=== PATIENT | male | born 1945 | race Caucasian/White ===

== ENCOUNTER 2018-02-07 22:47 | Emergency (ER) | payer MEDICARE ==
[2018-02-07] MEDS ORDERED: SODIUM CHLORIDE 0.9% 1,000 ML IV ONE (23:53)
[2018-02-07] MEDS ORDERED: ACETAMINOPHEN TAB 500 MG TAB PO STA (23:53)
--- NOTE | 2018-02-07 23:56 | ED ---
Recheck HPI - General Source: patient Mode of arrival: wheelchair Limitations: no limitations <Pearl Garcia - Last Filed: 02/08/18 02:45> <Demetrius Oneal - Last Filed: 02/10/18 09:24> - General Chief Complaint: Recheck/Abnormal Lab/Rx Stated Complaint: leg redness, fever Time Seen by Provider: 02/07/18 23:33 - History of Present Illness Initial Comments: 72-year-old male patient presents to the emergency department today for complaints of left knee pain, redness, and swelling. Patient has had infections to the left knee joint twice in the past. Patient sates he feels similar to his previous symptoms. He states that he is also having a fever and chills. He states that the left lower leg is red and swollen. Denies any numbness or tingling to the leg. Denies any recent long car rides or history of DVTs. He denies any cough, congestion, sore throat, nasal congestion, abdominal pain, nausea, vomiting, constipation, or diarrhea. Denies any hematuria, dysuria, urinary frequency, urinary urgency. Patient did have cataract surgery to the left eye today. Denies any eye symptoms at this time. Patient denies any recent rash, shortness breath, chest pain, back pain, numbness, tingling, dizziness, weakness, hematuria, dysuria, urinary urgency, urinary frequency, headache, or any other complaints. (Pearl Garcia) - Related Data Home Medications Medication Instructions Recorded Confirmed Celecoxib [CeleBREX] 200 mg PO DAILY 02/07/18 02/07/18 Diclofenac Sodium/Misoprostol 1 tab PO DAILY 02/07/18 02/07/18 [Arthrotec 50 mg-200 Mcg Tab] Metoprolol Tartrate [Lopressor] 100 mg PO DAILY 02/07/18 02/07/18 Multivitamin [Men's Multi-Vitamin] 1 tab PO DAILY 02/07/18 02/07/18 [place]-3 Fatty Acids [[place]-3] 1,000 mg PO DAILY 02/07/18 02/07/18 Rivaroxaban [Xarelto] 20 mg PO DAILY 02/07/18 02/07/18 Allergies Allergy/AdvReac Type Severity Reaction Status Date / Time Penicillins Allergy Unknown Verified 02/07/18 23:44 shellfish derived [Shellfish] Allergy Swelling Verified 02/07/18 23:44 tetanus and diphtheria Allergy Unknown Verified 02/07/18 23:44 toxoids Review of Systems ROS Other: All systems not noted in ROS Statement are negative. <ConnieismaPearl - Last Filed: 02/08/18 02:45> ROS Other: All systems not noted in ROS Statement are negative. <Demetrius Oneal - Last Filed: 02/10/18 09:24> ROS Statement: Those systems with pertinent positive or pertinent negative responses have been documented in the HPI. Past Medical History Past Medical History: Atrial Fibrillation History of Any Multi-Drug Resistant Organisms: MRSA Date of last positivie culture/infection: 2016 MDRO Source:: knee Additional Past Surgical History / Comment(s): bilateral knees and hips; cataracts Past Psychological History: No Psychological Hx Reported Smoking Status: Former smoker Past Alcohol Use History: Occasional Past Drug Use History: None Reported <Pearl Garcia - Last Filed: 02/08/18 02:45> General Exam Limitations: no limitations General appearance: alert, in no apparent distress, other (This is a well- developed, well-nourished, obese adult male patient in no acute distress. Vital signs upon presentation are temperature 101.0F, pulse 120, respirations 20, blood pressure 127/64, pulse ox 92% on room air.) Eye exam: Present: normal appearance, PERRL, EOMI. Absent: scleral icterus, conjunctival injection, periorbital swelling ENT exam: Present: normal exam, normal oropharynx, mucous membranes moist Respiratory exam: Present: normal lung sounds bilaterally. Absent: respiratory distress, wheezes, rales, rhonchi, stridor Cardiovascular Exam: Present: normal rhythm, tachycardia, normal heart sounds. Absent: systolic murmur, diastolic murmur, rubs, gallop, clicks GI/Abdominal exam: Present: soft, normal bowel sounds. Absent: distended, tenderness, guarding, rebound, rigid Extremities exam: Present: full ROM, tenderness (Tenderness over the left knee) , normal capillary refill, other (There is erythema, swelling, and tenderness over the left knee, erythema is extending down into the left lateral calf and ankle.). Absent: normal inspection, pedal edema, joint swelling, calf tenderness Neurological exam: Present: alert, oriented X3, CN II-XII intact Psychiatric exam: Present: normal affect, normal mood Skin exam: Present: warm, dry, intact, normal color. Absent: rash <Pearl Garcia - Last Filed: 02/08/18 02:45> Vital Signs 02/07/18 02/07/18 02/08/18 22:53 23:21 01:27 Temperature 101 F H 100.2 F H Pulse Rate 120 H 98 106 H Respiratory 20 16 17 Rate Blood Pressure 127/64 134/79 112/52 O2 Sat by Pulse 92 L 93 L 92 L Oximetry 02/08/18 02/08/18 03:14 04:08 Temperature 100.7 F H 100.2 F H Pulse Rate 95 84 Respiratory 14 14 Rate Blood Pressure 107/63 117/70 O2 Sat by Pulse 82 L 96 Oximetry Medical Decision Making - Lab Data Result diagrams: 02/08/18 00:12 02/08/18 00:50 - Radiology Data Radiology results: report reviewed, image reviewed <Pearl Garcia - Last Filed: 02/08/18 02:45> - Lab Data Result diagrams: 02/08/18 00:12 02/08/18 00:50 <Demetrius Oneal - Last Filed: 02/10/18 09:24> - Medical Decision Making 72-year-old male patient presented to the emergency department today for evaluation of left knee pain, swelling, and redness. Physical examination did reveal left knee swelling, erythema extending down into the calf, and tenderness. Labs reviewed and did reveal white blood cell count of 13.7, neutrophils 11.7, BUN 26, AST and AST are both elevated at 159 and 156 respectively. X-ray of the left knee showed knee joint effusion. Agent has had numerous surgeries to the left knee including total knee replacement with revision and multiple infections to the knee. His orthopedic surgeon is Dr. Tariq who is affiliated with [facility]. We did discuss the case with the ER physician at [facility] they are accepting of the transfer. They did advise to hold off antibiotics until patient sees Dr. Tariq in the morning. (Pearl Garcia) I saw this patient in conjunction with the physician [employer] assistant [employer]. I performed independent history and physical exam. Agree with case management. (Demetrius Oneal) - Lab Data Lab Results 02/08/18 02/08/18 02/08/18 Range/Units 00:12 00:12 00:50 WBC 13.7 H (3.8-10.6) k/uL RBC 4.36 (4.30-5.90) m/uL Hgb 14.3 (13.0-17.5) gm/dL Hct 41.6 (39.0-53.0) % MCV 95.3 (80.0-100.0) fL MCH 32.7 (25.0-35.0) pg MCHC 34.3 (31.0-37.0) g/dL RDW 13.8 (11.5-15.5) % Plt Count 164 (150-450) k/uL Neutrophils % 86 % Lymphocytes % 8 % Monocytes % 4 % Eosinophils % 1 % Basophils % 0 % Neutrophils # 11.7 H (1.3-7.7) k/uL Lymphocytes # 1.1 (1.0-4.8) k/uL Monocytes # 0.5 (0-1.0) k/uL Eosinophils # 0.2 (0-0.7) k/uL Basophils # 0.0 (0-0.2) k/uL Manual Slide Review Performed Large Platelets Present Sodium 140 (137-145) mmol/L Potassium 4.3 (3.5-5.1) mmol/L Chloride 104 (98-107) mmol/L Carbon Dioxide 22 (22-30) mmol/L Anion Gap 14 mmol/L BUN 26 H (9-20) mg/dL Creatinine 0.80 (0.66-1.25) mg/dL Est GFR (CKD-EPI)AfAm >90 (>60 ml/min/1.73 sqM) Est GFR (CKD-EPI)NonAf 88 (>60 ml/min/1.73 sqM) Glucose 124 H (74-99) mg/dL Plasma Lactic Acid Bryson 1.1 (0.7-2.0) mmol/L Calcium 9.5 (8.4-10.2) mg/dL Total Bilirubin 1.0 (0.2-1.3) mg/dL AST 159 H (17-59) U/L ALT 156 H (21-72) U/L Alkaline Phosphatase 104 (38-126) U/L Total Protein 6.6 (6.3-8.2) g/dL Albumin 4.1 (3.5-5.0) g/dL - Radiology Data 3 views of the left knee show left knee prosthesis. There is soft tissue swelling about the patella. Components appear in anatomic position. There is vascular calcification. Impression by Dr. Foley shows knee joint effusion. No fracture seen. (Pearl Garcia) Disposition Is patient prescribed a controlled substance at d/c from ED?: No - Out of Hospital Transfer - Req. Specs Out of Hospital Transfer - Requested Specifics: Other Emergency Center ([facility]) <Pearl Garcia - Last Filed: 02/08/18 02:45> Is patient prescribed a controlled substance at d/c from ED?: No - Out of Hospital Transfer - Req. Specs Out of Hospital Transfer - Requested Specifics: Other Emergency Center <Demetrius Oneal - Last Filed: 02/10/18 09:24> Clinical Impression: Septic joint of left knee joint Disposition: OTHER INSTITUTION NOT DEFINED Condition: Serious Referrals: Russell Lewis MD [Primary Care Provider] - 1-2 days
[2018-02-08 00:26] LABS: Basophils % (A) 0 %; Eosinophils # (A) 0.2 k/uL (0-0.7); Eosinophils % (A) 1 %; HCT 41.6 % (39.0-53.0); HGB 14.3 gm/dL (13.0-17.5); Lymphocytes # (A) 1.1 k/uL (1.0-4.8); Lymphocytes % (A) 8 %; MCH 32.7 pg (25.0-35.0); MCHC 34.3 g/dL (31.0-37.0); MCV 95.3 fL (80.0-100.0); Mean Platelet Volume 10.8; Monocytes # (A) 0.5 k/uL (0-1.0); Monocytes % (A) 4 %; Neutrophils # (A) 11.7 k/uL (1.3-7.7); Neutrophils % (A) 86 %; Platelet Count 164 k/uL (150-450); RBC 4.36 m/uL (4.30-5.90); RDW 13.8 % (11.5-15.5); WBC 13.7 k/uL (3.8-10.6)
--- NOTE | 2018-02-08 00:59 | XR ---
EXAMINATION TYPE: XR knee complete LT DATE OF EXAM: 02/08/2018 COMPARISON: NONE HISTORY: Knee pain TECHNIQUE: 3 views FINDINGS: There is a left knee prosthesis. There is soft tissue swelling above the patella. Component s appear in anatomic position. There is vascular calcification. IMPRESSION: Knee joint effusion. No fracture seen.
[2018-02-08 01:00] LABS: Large Platelets Present
[2018-02-08 01:10] LABS: ALT 156 U/L (21-72); AST 159 U/L (17-59); Albumin 4.1 g/dL (3.5-5.0); Alkaline Phosphatase 104 U/L (38-126); Anion Gap 14 mmol/L; Blood Urea Nitrogen 26 mg/dL (9-20); Calcium 9.5 mg/dL (8.4-10.2); Carbon Dioxide 22 mmol/L (22-30); Chloride 104 mmol/L (98-107); Glucose 124 mg/dL (74-99); Potassium 4.3 mmol/L (3.5-5.1); Sodium 140 mmol/L (137-145); Total Protein 6.6 g/dL (6.3-8.2)
[2018-02-08] MEDS ORDERED: MORPHINE SULFATE 4MG/4ML SYRG IVP STA (03:08)
[2018-02-08 03:18] VITALS: RESP 14
[2018-02-08 04:12] VITALS: BP 117/70; PULSE 84; TEMP 100.2
== END 2018-02-08 04:20 | disposition short-term general hospital (02) ==
LOC: EC 22:47
DX: M00.9 Pyogenic arthritis, unspecified (principal); R74.0 Nonspecific elevation of levels of transaminase and lactic acid dehydrogenase [LDH]; R00.0 Tachycardia, unspecified; E66.9 Obesity, unspecified; I48.91 Unspecified atrial fibrillation; Z87.891 Personal history of nicotine dependence; Z79.01 Long term (current) use of anticoagulants; Z79.1 Long term (current) use of non-steroidal anti-inflammatories (NSAID); Z79.899 Other long term (current) drug therapy; Z88.0 Allergy status to penicillin; Z88.7 Allergy status to serum and vaccine; Z91.013 Allergy to seafood; Z86.14 Personal history of Methicillin resistant Staphylococcus aureus infection; Z96.653 Presence of artificial knee joint, bilateral; Z68.41 Body mass index [BMI] 40.0-44.9, adult
CPT/HCPCS: 36415; 80053; 83605; 85025; 87040; 87077; 87186; 73562; 99284; 96374; 96361; J2270

== ENCOUNTER → 2019-05-07 | Outpatient (CLI) | payer MEDICARE ==
--- NOTE | 2019-05-07 16:11 | CT ---
EXAMINATION TYPE: CT chest wo con DATE OF EXAM: 05/07/2019 COMPARISON: None HISTORY: Pt c/o a lot of phlem. Results from CXR abnormal CT DLP: [address] of the chest was performed with lung and mediastinal window settings submitted. The la ck of contrast limits evaluation of the vascular, mediastinal and parenchymal structures including th e upper abdomen. LUNGS: The lungs are clear and free of infiltrate. No atelectasis. Mild basilar bronchiectatic change . Mild subpleural fibrosis. No pulmonary nodule or mass is detected. No pleural effusion. MEDIASTINUM/SHAWN: Ascending thoracic aortic aneurysm measures 4.3 cm in AP dimension. [id number] e cardiomegaly noted. No evidence for mediastinal mass. No lymph nodes greater than 1cm. UPPER ABDOMEN: No significant abnormality is seen. OTHER: No significant other abnormality. IMPRESSION: 1. Mild basilar bronchiectatic change. Mild subpleural fibrosis. 2 ascending thoracic aortic aneurys m.
== END | disposition home or self-care (01) ==
LOC: RADCTMAIN 15:27
PROVIDERS: ATTEND Family Medicine
DX: J47.9 Bronchiectasis, uncomplicated (principal); I71.2 Thoracic aortic aneurysm, without rupture; J94.1 Fibrothorax
CPT/HCPCS: 71250

== ENCOUNTER → 2019-06-04 | Outpatient (CLI) | payer MEDICARE ==
--- NOTE | 2019-06-04 11:35 | ECHOF ---
Referral Reason:I48.91 atrial fibrillation MEASUREMENTS -------- HEIGHT: 180.3 cm WEIGHT: 121.1 kg BP: 127/78 RVIDd: 3.5 cm (< 3.3) IVSd: 1.4 cm (0.6 - 1.1) LVIDd: 5.5 cm (3.9 - 5.3) LVPWd: 1.5 cm (0.6 - 1.1) IVSs: 1.8 cm LVIDs: 4.1 cm LVPWs: 1.7 cm LA Diam: 3.8 cm (2.7 - 3.8) LAESV Index (A-L): 45.30 ml/m Ao Diam: 3.8 cm (2.0 - 3.7) AV Cusp: 1.9 cm (1.5 - 2.6) MV EXCURSION: 13.644 mm (> 18.000) MV EF SLOPE: 56 mm/s (70 - 150) EPSS: 2.0 cm RAP: 5.00 mmHg RVSP: 33.88 mmHg FINDINGS -------- Atrial fibrillation. This was a technically difficult study with suboptimal views. The left ventricular size is normal. There is moderate concentric left ventricular hypertrophy. O verall left ventricular systolic function is mild-moderately impaired with, an EF between 40 - 45 %. The right ventricle is mildly enlarged. LA is severely dilated >40 ml/m2 The right atrium is normal in size. Lumason used Interatrial and interventricular septum intact. There is mild to moderate aortic valve sclerosis. Mild mitral annular calcification present. Mild mitral regurgitation is present. Mild tricuspid regurgitation present. There is borderline pulmonary hypertension. The right ventr icular systolic pressure, as measured by Doppler, is 33.88mmHg. The pulmonic valve was not well visualized. The aortic root is dilated measuring 3.8cm. Normal inferior vena cava with normal inspiratory collapse consistent with estimated right atrial pre ssure of 5 mmHg. There is no pericardial effusion. CONCLUSIONS -------- 1. Atrial fibrillation. 2. This was a technically difficult study with suboptimal views. 3. The left ventricular size is normal. 4. There is moderate concentric left ventricular hypertrophy. 5. Overall left ventricular systolic function is mild-moderately impaired with, an EF between 40 - 45 %. 6. The right ventricle is mildly enlarged. 7. LA is severely dilated >40 ml/m2 8. The right atrium is normal in size. 9. Lumason used 10. Interatrial and interventricular septum intact. 11. There is mild to moderate aortic valve sclerosis. 12. Mild mitral annular calcification present. 13. Mild mitral regurgitation is present. 14. Mild tricuspid regurgitation present. 15. There is borderline pulmonary hypertension. 16. The right ventricular systolic pressure, as measured by Doppler, is 33.88mmHg. 17. The pulmonic valve was not well visualized. 18. The aortic root is dilated measuring 3.8cm. 19. Normal inferior vena cava with normal inspiratory collapse consistent with estimated right atrial pressure of 5 mmHg. 20. There is no pericardial effusion. KETTLE COORDINATOR: Mary Medellin RDCS
== END | disposition home or self-care (01) ==
LOC: RADECHMAIN 08:14
PROVIDERS: ATTEND Family Medicine
DX: I48.91 Unspecified atrial fibrillation (principal); I08.1 Rheumatic disorders of both mitral and tricuspid valves; I70.8 Atherosclerosis of other arteries
CPT/HCPCS: 93306